=== PATIENT | male | born 1985 | race Caucasian/White ===

== ENCOUNTER 2021-01-09 13:50 | Emergency (ER) | payer OTHER, SELFPAY ==
[2021-01-09 13:51] VITALS: BP 141/79; PULSE 80; RESP 18; TEMP 36.9; O2SAT 100; BMI 25.1
--- NOTE | 2021-01-09 15:04 | EKG12_ITS ---
Test Reason : CP Blood Pressure : / mmHG Vent. Rate : 071 BPM Atrial Rate : 071 BPM P-R Int : 174 ms QRS Dur : 084 ms QT Int : 368 ms P-R-T Axes : 058 082 059 degrees QTc Int : 399 ms Sinus rhythm with marked sinus arrhythmia Otherwise normal ECG Confirmed by ANGELIKA CEDILLO, SUSAN ([id number]), newspaper photo editor KAMI CRUZ ([id number]) on 01/11/2021 10:34:48 AM Referred By: TORO Confirmed By:SUSAN CARNEY MD
--- NOTE | 2021-01-09 15:04 | RAD_ITS ---
STUDY: X-RAY CHEST REASON FOR EXAM: Male, 35 years old. Chest pain TECHNIQUE: Single AP portable view of the chest. COMPARISON: None. FINDINGS: EKG electrodes are seen. The lungs are clear and expanded. There is no demonstrated pleural abnormality. Normal size heart. Normal mediastinum and ivan. Normal visualized pulmonary arteries. Normal visualized aortic arch and descending thoracic aorta. Normal visualized thoracic spine. Normal visualized ribs, clavicles, and shoulders. There is no demonstrated abnormality of the visualized soft tissue structures of the upper abdomen. RAD/Chest 1 View (Portable) IMPRESSION: Normal x-ray examination of the chest. Electronically Signed: Moose Ruiz MD at 15:30 EDT , Service support ,
[2021-01-09 15:21] LABS: Absolute Lymphocyte Count 2.37 X10^3/uL (0.83-4.51); Absolute Neutrophil Count 4.6 X10^3/uL (2.0-7.7); Basophil# 0.04 X10^3/uL; Basophil% 0.5 % (0-1); Eosinophil# 0.44 X10^3/uL; Eosinophils% 5.4 % (0-5); Hemoglobin 15.1 g/dL (13.0-16.5); Lymphocyte # 2.37 X10^3/ul (0.83-4.51); Mean Corp Hgb Conc 34.3 g/dL (32-36); Mean Corpuscular Hgb 32.5 pg (27.0-32.0); Mean Corpuscular Volume 94.6 fL (80-94); Mean Platelet Vol. 10.3 fl (6.2-12.0); Monocyte# 0.65 X10^3/uL; Monocyte% 7.9 % (0-10); NRBC Flagged by Analyzer 0 % (0-5); Neutrophil # 4.64 X10^3/uL (2.7-7.7); Neutrophil % 56.7 % (47-70); Platelet Count 214 K/mm3 (150-450); RBC Distribution Width CV 11.4 % (11.6-14.6); RBC Distribution Width SD 39.1 fl (35.1-43.9); Red Blood Count 4.65 M/mm3 (4.6-6.2); White Blood Count 8.2 K/mm3 (4.4-11.0)
[2021-01-09 15:36] LABS: Anion Gap 6 (5-15); BUN 11 mg/dL (7-18); BUN/Creat Ratio 12.2 RATIO (10-20); Calcium,Total 8.7 mg/dL (8.5-10.1); Chloride 104 mmol/L (98-107); EST Glomerular Filtration Rate 102 mL/min (>60); Est Glom Filt Rate - Afr Amer 123 mL/min (>60); Estimated Creatinine Clearance 122.01 ml/min; Glucose 101 mg/dL (74-106); Potassium 3.9 mmol/L (3.5-5.1); Sodium Level 138 mmol/L (136-145); Troponin-I HS 28.4 pg/mL (3.0-78.5)
--- NOTE | 2021-01-09 15:51 | ED.VIS.CHEST ---
HPI History of Present Illness Chief Complaint: Chest Pain Informant: patient Narrative Narrative: Over the last 2 days or so patient has had continuous mild nonpleuritic chest tightness and occasional episodes of sharp nonpleuritic left-sided chest pain with radiation sometimes into his left upper arm and lightheadedness, and palpitations of feels like his heart is racing. He has a history of anxiety and knows this, and knows that these episodes of it making him feel anxious, the episodes last a minute or 2 sometimes 5, and he is unsure because of this whether the racing heartbeat is starting these episodes or is a result of them or his anxiety. He is a non-smoker, does not use illicit substances, and has no other medical problems. No history of blood clots. No recent travel, hospitalization, immobilization, or surgery. CVD Risk Factors: Positive for Smoking (E-cigarettes only); Negative for Hypertension, Diabetes, Hypercholesterolemia and Family History 1' </=55 PE Risk Factors: Negative for Recent Travel/Surgery, Recent Immobilization, Prior DVT or PE, Cancer and OCP + Smoking + >/=35 PFSH PFSH Medical History Anxiety Home Medications hydroxyzine HCl 10 mg PO DAILY 01/09/21 [History Last Taken Unknown] mirtazapine 15 mg PO QHS 01/09/21 [History Last Taken Unknown] omeprazole 20 mg PO DAILY #14 capsule 01/09/21 [Rx Last Taken Unknown] Allergy/AdvReac Type Severity Reaction Status Date / Time Penicillins Allergy Chest Verified 01/09/21 13:53 tightness Social History Smoking Status: Current every day smoker tobacco type: e-cigarettes ROS ROS ED Constitutional Constitutional ED: Denies chills or fever(s) Eyes Eyes: Denies change in vision or diplopia ENT ENT ED: Denies rhinorrhea or sore throat Cardiovascular Cardiovascular: Denies chest pain or palpitations Respiratory/Chest Respiratory/Chest: Denies cough or dyspnea Gastrointestinal Gastrointestinal: Denies abdominal pain, diarrhea, nausea or vomiting Genitourinary Genitourinary ED: Denies dysuria or hematuria Musculoskeletal Musculoskeletal: Denies back pain or neck pain Integumentary Denies abscess or rash Neurologic Neurologic: Denies headache(s), paresthesias or weakness Psychiatric Psychiatric: Denies anxiety or suicidal thoughts EXAM Physical Exam Const Vital Signs: 01/09/21 13:51 01/09/21 16:11 Temperature 98.4 F Temperature Source Temporal Pulse Rate 80 63 Respiratory Rate 18 14 Blood Pressure 141/79 H 109/72 Blood Pressure Mean 99 84 Pulse Ox 100 100 Oxygen Delivery Method Room Air Room Air Positive well nourished and well developed General Appearance ED: well developed and NAD HEENT Reports moist mucous membranes normocephalic and atraumatic Eyes PERRL and EOMs intact bilaterally Neck full ROM and supple Resp normal respiratory effort and clear to auscultation bilaterally Cardio regular rate, regular rhythm and no murmurs GI non-tender and non-distended Auscultation: normoactive bowel sounds Palpation: soft Back/Spine no CVA tenderness General Back: other FROM Extremity normal to inspection General Extremety ED: Negative for edema, pulses abnormal or tenderness General Extremity: Negative for edema or pulses abnormal Neuro oriented x3, CN's II-XII intact bilaterally and no sensory deficits noted Sensorium / Orientation: awake and alert Motor Exam: strength 5/5 throughout Skin no rashes or lesions noted and no wounds Heart Score History: Slightly/Non-Suspicious ECG: Normal Age: </= 45 years Risk Factors: 1 or 2 Risk Factors Troponin: </= Normal Limit Score: 1 MDM MDM MDM Narrative Medical decision making narrative: Patient had no further episodes of sharp left-sided chest pain, arm pain, or palpitations while in the emergency department on the monitor, nor did he have any abnormal events on the monitor. His work-up is negative. His troponin high-sensitivity is 28 which is well within normal limits of the 99th percentile which topped out at 78, I discussed this finding with Dr. Acosta with cardiology who agreed that this measurement was enough to rule out emergent cardiac etiology at this time without needing a second. I gave the patient a GI cocktail, he states that his chest actually improved significantly compared with prior in addition to the numbness in his throat. Certainly esophageal etiologies I think are more likely than cardiac ones at this time given his age and health. I think is reasonable to have him follow-up closely, he actually has an appointment with his doctor tomorrow, will place him on a 2-week course of a PPI in the meantime. He is comfortable with this plan. We discussed reasons to return. Lab Data Attestation: I reviewed the patient's lab results. Labs: Laboratory Results - last 24 hr 01/09/21 01/09/21 14:25 14:25 WBC 8.2 RBC 4.65 Hgb 15.1 Hct 44.0 MCV 94.6 H MCH 32.5 H MCHC 34.3 RDW Std Deviation 39.1 RDW Coeff of Alexandre 11.4 L Plt Count 214 MPV 10.3 Immature Gran % (Auto) 0.500 Neut % (Auto) 56.7 Lymph % (Auto) 29.0 [place] % (Auto) 7.9 Eos % (Auto) 5.4 H Baso % (Auto) 0.5 Absolute Neuts (auto) 4.6 Absolute Lymphs (auto) 2.37 Nucleated RBC % 0 Sodium 138 Potassium 3.9 Chloride 104 Carbon Dioxide 28.0 Anion Gap 6 BUN 11 Creatinine 0.90 Estim Creat Clear Calc 122.01 Est GFR (MDRD) Af Amer 123 Est GFR (MDRD) Non-Af 102 BUN/Creatinine Ratio 12.2 Glucose 101 Calcium 8.7 Troponin I High Sens 28.4 Radiography Chest X-Ray - ED: 1 View, Read by ED Physician and No Acute Disease Diagnostic Testing: Radiology Impression Chest X-Ray 01/09/21 15:04 IMPRESSION: Normal x-ray examination of the chest. Electronically Signed: Moose Ruiz MD at 15:30 EDT , Service support , EKG Initial EKG: Attestation: I personally reviewed and interpreted this EKG as follows: Interpretation: No Acute Injury Pattern and Sinus Arrythmia Comments: Otherwise normal EKG Discharge Plan Triage Chief Complaint: Chest Pain ED Provider: Bunny Tamayo Dx/Rx/DC Orders Clinical Impression: Chest pain, unspecified Instructions: ED Chest Pain, Uncertain Cause, ED Palpitations Prescriptions: New omeprazole [omeprazole] 20 MG capsule 20 mg PO DAILY Qty: 14 RF: 0 No Action mirtazapine 15 mg tablet 15 mg PO QHS RF: 0 hydroxyzine HCl 10 mg tablet 10 mg PO DAILY RF: 0 Primary Care Provider: Ivan Gruber Referrals: Ivan Gruber MD [Primary Care Provider] - 3-5 Days if not improving Disposition Disposition: Home, Self Care
[2021-01-09] MEDS: Mag Hydrox/Al Hydrox/Simeth 30 ML UDC PO (16:10)
[2021-01-09 16:11] VITALS: BP 109/72; PULSE 63; RESP 14; O2SAT 100
[2021-01-09 16:49] VITALS: BP 107/80; PULSE 60; RESP 14; O2SAT 100
== END 2021-01-09 16:53 | disposition home or self-care (01) ==
PROVIDERS: Emergency Provider Emergency Medicine; PCP Family Medicine
DX: R07.89 Other chest pain (principal); R00.2 Palpitations; F41.9 Anxiety disorder, unspecified; F17.290 Nicotine dependence, other tobacco product, uncomplicated; Z79.899 Other long term (current) drug therapy
CPT/HCPCS: 71045; 80048; 84484; 85025; 93005; 99284; A4216

== ENCOUNTER 2021-08-04 16:01 | Emergency (ER) | payer OTHER, SELFPAY ==
[2021-08-04 16:02] VITALS: BP 157/94; PULSE 67; RESP 18; TEMP 37.1; O2SAT 100; BMI 25.1
--- NOTE | 2021-08-04 16:26 | EKG12_ITS ---
Test Reason : CP Blood Pressure : / mmHG Vent. Rate : 068 BPM Atrial Rate : 075 BPM P-R Int : 000 ms QRS Dur : 076 ms QT Int : 388 ms P-R-T Axes : 000 079 057 degrees QTc Int : 412 ms Normal sinus rhythm Abnormal ECG Confirmed by PAOLO CLARKE MD ([id number]), newspaper editor KAMI CRUZ ([id number]) on 08/07/2021 10:35:03 AM Referred By: PC Confirmed By:PAOLO CLARKE MD
--- NOTE | 2021-08-04 16:28 | EDS_ITS ---
HPI History of Present Illness Chief Complaint: Chest Pain Narrative Narrative: 36-year-old male with history of hyperlipidemia, anxiety presents to the emerge department with 1 week of generalized left-sided chest pain that has radiated to the left shoulder. Patient states that he noticed a lump to the left side of his chest, that went away after 3 days, patient states she continued to have chest pain to the left side that radiates to his left shoulder, left neck and is rating down his left arm. Patient denies any shortness of breath. Patient states to feel generalized heaviness, and is here for evaluation. Patient denies any recent trips, flying,. Fevers chills nausea vomiting. Patient denies any cough or infectious symptoms. [facility] Medical History (Updated 08/04/21 @ 19:15 by BOOM Miner) Anxiety Hypercholesterolemia Home Medications hydroxyzine HCl 10 mg PO DAILY 01/09/21 [History Last Taken Unknown] omeprazole 20 mg PO DAILY #14 capsule 01/09/21 [Rx Last Taken Unknown] naproxen [Naprosyn] 500 mg PO BID PRN #20 tab 08/04/21 [Rx Last Taken Unknown] Allergy/AdvReac Type Severity Reaction Status Date / Time egg Allergy NEEDS Verified 08/04/21 16:04 FOLLOW-UP Penicillins Allergy Chest Verified 08/04/21 16:04 tightness Social History Smoking Status: Current every day smoker tobacco type: e-cigarettes ROS ROS ED ROS Narrative Constitutional: Negative for fever, chills, weight loss or gain, weakness Eyes: Negative for vision loss, vision change, double vision ENT: Negative for any hearing changes, ringing in the ears, dizziness, discharge, pain Nose: Negative for any congestion, runny nose, sinus pain, allergies Throat: Negative for any sore throat hoarseness, voice changes, Cardiovascular: Negative for any palpitations, racing heartbeat. Positive chest pain, chest pressure Respiratory: Negative for any coughs, sputum production, coughing, hemoptysis, shortness of breath, shortness of breath on exertion, Gastrointestinal: Negative for any abdominal pain, nausea, vomiting, diarrhea, constipation, blood in stool, blood in vomit : Negative for any urinary frequency, incontinence, dysuria, retention, blood in urine Muscle skeletal: Negative for any muscle joint pain, stiffness, myalgias, arthralgias, neck pain, back pain. Positive for left shoulder pain, rating down left arm Neurological: Negative for any headache, head injury, dizziness, syncope. Positive for numbness tingling down left arm Skin: Negative for any rashes, lumps, itching, abrasions, lacerations Psychiatric: Negative for any depression, anxiety, stress, suicidal ideation, homicidal ideation Hematologic: Negative for any easy bruising, excessive bruising, easy bleeding Allergies: Negative for any eczema, hives, rash EXAM Physical Exam Const Vital Signs: 08/04/21 16:02 08/04/21 16:16 08/04/21 16:29 Temperature 98.7 F Temperature Source Temporal Pulse Rate 67 Respiratory Rate 18 Respiratory Effort Short of Breath Blood Pressure 157/94 H Blood Pressure Mean 115 Pulse Ox 100 98 Oxygen Delivery Method Room Air Room Air Positive well nourished and well developed General Appearance ED: well developed HEENT normocephalic and atraumatic Eyes PERRL and EOMs intact bilaterally Neck no lymphadenopathy and supple Chest Wall inspection of chest normal and palpation of chest normal Resp normal respiratory effort Effort and Inspection: respiratory distress Cardio regular rate, regular rhythm, S1 normal heart sound and S2 normal heart sound GI normal to inspection, nondistended, normoactive bowel sounds, soft to palpation, non-tender, non-distended and no masses Back/Spine no CVA tenderness Extremity normal to inspection Neuro oriented x3 Sensorium / Orientation: awake, alert and oriented to person Psych mental status grossly normal Skin no rashes or lesions noted MDM MDM MDM Narrative Medical decision making narrative: Patient appears well, patient appears nontoxic, vital signs are stable, patient presents the emerge department left- sided chest pain, left shoulder pain rates down her left arm. Patient did receive a full cardiac work-up, patient's EKG was unremarkable, chest x-ray was unremarked for any acute cardiopulmonary process. Patient's laboratory studies showed initial troponin of 20, repeat was 21, there is no indication of any ACS, [place], pneumonia. Patient did have relief of symptoms with IV fluids, IV Toradol and will be discharged with naproxen. Patient instructed to return with worsening symptoms. Patient to follow-up with his PCP. Patient stable for discharge and happy with the plan of care. Lab Data Attestation: I reviewed the patient's lab results. Labs: Laboratory Results - last 24 hr 08/04/21 08/04/21 08/04/21 16:10 16:10 18:30 WBC 7.5 RBC 4.62 Hgb 15.3 Hct 42.9 MCV 92.9 MCH 33.1 H MCHC 35.7 RDW Std Deviation 39.2 RDW Coeff of Alexandre 11.5 L Plt Count 201 MPV 11.0 Immature Gran % (Auto) 0.300 Neut % (Auto) 62.4 Lymph % (Auto) 27.8 [place] % (Auto) 6.5 Eos % (Auto) 2.3 Baso % (Auto) 0.7 Absolute Neuts (auto) 4.7 Absolute Lymphs (auto) 2.08 Nucleated RBC % 0 Sodium 137 Potassium 3.7 Chloride 104 Carbon Dioxide 29.0 Anion Gap 4 L BUN 10 Creatinine 0.94 Estim Creat Clear Calc 115.71 Est GFR (MDRD) Af Amer 117 Est GFR (MDRD) Non-Af 97 BUN/Creatinine Ratio 10.7 Glucose 105 Calcium 8.9 Troponin I High Sens 20 21 Radiography Diagnostic Testing: Clinical Impression(s) from Imaging Studies Chest X-Ray 08/04/21 16:49 IMPRESSION: There are no acute findings. Electronically Signed: Mariano Bennett MD at 17:01 EST Reading Location ID and State: [facility] / [place] , Service support , EKG NSR: Attestation: I personally reviewed and interpreted this EKG as follows: Interpretation: Sinus Rhythm Comments: Normal sinus rhythm, rate of 60 bpm, no acute ST elevation, no acute infarct noted Discharge Plan Triage Chief Complaint: Chest Pain ED Provider: Akil Padilla Dx/Rx/DC Orders Clinical Impression: Chest pain, unspecified Instructions: ED Chest Pain [facility] Prescriptions: New naproxen [Naprosyn] 500 mg tablet 500 mg PO BID PRN (Reason: pain) Qty: 20 RF: 0 No Action hydroxyzine HCl 10 mg tablet 10 mg PO DAILY RF: 0 omeprazole [omeprazole] 20 MG capsule 20 mg PO DAILY Qty: 14 RF: 0 Primary Care Provider: Ivan Gruber Referrals: Ivan Gruber MD [Primary Care Provider] - Activity Restrictions/Additional Instructions: Please use naproxen as needed, please perform gentle stretching. Please ice and elevate. Disposition Disposition: Home, Self Care
[2021-08-04 16:29] VITALS: O2SAT 98
[2021-08-04] MEDS: Ondansetron 4 MG/2 ML Vial IV (16:34)
[2021-08-04] MEDS: 0.9% Normal Saline 1,000 ML 1000 ML IV (16:34)
[2021-08-04 16:49] LABS: Absolute Lymphocyte Count 2.08 X10^3/uL (0.83-4.51); Absolute Neutrophil Count 4.7 X10^3/uL (2.0-7.7); Basophil# 0.05 X10^3/uL; Basophil% 0.7 % (0-1); Eosinophil# 0.17 X10^3/uL; Eosinophils% 2.3 % (0-5); Hematocrit 42.9 % (40-54); Hemoglobin 15.3 g/dL (13.0-16.5); Lymphocyte # 2.08 X10^3/ul (0.83-4.51); Lymphocyte % 27.8 % (19-41); Mean Corp Hgb Conc 35.7 g/dL (32-36); Mean Corpuscular Hgb 33.1 pg (27.0-32.0); Mean Corpuscular Volume 92.9 fL (80-94); Monocyte# 0.49 X10^3/uL; Monocyte% 6.5 % (0-10); NRBC Flagged by Analyzer 0 % (0-5); Neutrophil # 4.68 X10^3/uL (2.7-7.7); Neutrophil % 62.4 % (47-70); Platelet Count 201 K/mm3 (150-450); RBC Distribution Width CV 11.5 % (11.6-14.6); RBC Distribution Width SD 39.2 fl (35.1-43.9); Red Blood Count 4.62 M/mm3 (4.6-6.2); White Blood Count 7.5 K/mm3 (4.4-11.0)
--- NOTE | 2021-08-04 16:49 | RAD_ITS ---
STUDY: X-RAY CHEST REASON FOR EXAM: Male, 36 years old. CHEST PAIN chest pain TECHNIQUE: XR Chest 1 View COMPARISON: 8.9.21 FINDINGS: There is no demonstrated pleural abnormality. Normal size heart. Normal mediastinum and ivan. Normal visualized pulmonary arteries. Normal visualized aortic arch and descending thoracic aorta. Normal visualized thoracic spine. Normal visualized ribs, clavicles, and shoulders. There is no demonstrated abnormality of the visualized soft tissue structures of the upper abdomen. RAD/Chest 1 View (Portable) IMPRESSION: There are no acute findings. Electronically Signed: Mariano Bennett MD at 17:01 EST ,
[2021-08-04 17:43] LABS: Anion Gap 4 (5-15); BUN 10 mg/dL (7-18); BUN/Creat Ratio 10.7 RATIO (10-20); Calcium,Total 8.9 mg/dL (8.5-10.1); Chloride 104 mmol/L (98-107); Creatinine, Serum 0.94 mg/dL (0.70-1.30); EST Glomerular Filtration Rate 97 mL/min (>60); Est Glom Filt Rate - Afr Amer 117 mL/min (>60); Estimated Creatinine Clearance 115.71 ml/min; Glucose 105 mg/dL (74-106); Potassium 3.7 mmol/L (3.5-5.1); Sodium Level 137 mmol/L (136-145); Troponin-I HS 20 pg/mL (3.0-78.0)
[2021-08-04 18:52] LABS: Troponin-I HS 21 pg/mL (3.0-78.0)
== END 2021-08-04 19:43 | disposition home or self-care (01) ==
PROVIDERS: Emergency Provider Nurse Practitioner; PCP Family Medicine; Visit Provider Nurse Practitioner
DX: R07.9 Chest pain, unspecified (principal); E78.5 Hyperlipidemia, unspecified; F41.9 Anxiety disorder, unspecified; F17.290 Nicotine dependence, other tobacco product, uncomplicated; Z79.1 Long term (current) use of non-steroidal anti-inflammatories (NSAID); Z79.899 Other long term (current) drug therapy
CPT/HCPCS: 71045; 80048; 84484; 85025; 93005; 96361; 96374; 99284; J7030; A4216; J2405

== ENCOUNTER 2021-11-16 17:26 | Emergency (ER) | payer OTHER, SELFPAY ==
[2021-11-16 17:27] VITALS: BP 133/89; PULSE 107; RESP 16; TEMP 36.8; O2SAT 100; BMI 23.6
[2021-11-16 17:29] VITALS: BP 133/89; PULSE 107; RESP 16; TEMP 36.8; O2SAT 100
--- NOTE | 2021-11-16 17:43 | EX.ED.DYSGE1 ---
HPI History of Present Illness Chief Complaint: General Illness Detail of Chief Complaint: Tingling. Anxiety. Informant: patient Onset/Context/Timing Onset: Days Context: Gradual Onset Timing: Intermittent Current Severity: Mild Maximum Severity: Mild Narrative Narrative: 36-year-old male history of anxiety. Recently diagnosed with superficial thrombophlebitis was placed on Naprosyn and daily aspirin. States has had intermittent numbness in his left leg right shoulder left shoulder in other areas. Said he is under more stress and his anxiety has been worse. He denies any headache. He denies any trouble with his speech. No trouble walking. No trouble moving his arms or legs. No visual changes. No facial numbness or weakness. Prior similar symptoms: No Recent Illness/Hospitalization: No PFSH PFSH Medical History Anxiety Hypercholesterolemia Persistent testicular pain Home Medications hydroxyzine HCl 10 mg tablet 10 mg PO DAILY 01/09/21 [History Last Taken Unknown] omeprazole 20 mg capsule,delayed release 20 mg PO DAILY #14 CAPSULES 01/09/21 [Rx Last Taken Unknown] naproxen 500 mg tablet (Naprosyn) 500 mg PO BID PRN pain #20 tabs 08/04/21 [Rx Last Taken Unknown] Allergy/AdvReac Type Severity Reaction Status Date / Time egg Allergy NEEDS Verified 08/04/21 16:04 FOLLOW-UP Penicillins Allergy Chest Verified 08/04/21 16:04 tightness Social History Smoking Status: Current every day smoker tobacco type: e-cigarettes ROS ROS ED ROS Narrative No recent illness. Review of Systems ROS Unobtainable: Denies due to encephalopathy Constitutional Constitutional ED: Denies chills Eyes Eyes: Denies blurry vision ENT ENT ED: Denies ear pain Cardiovascular Cardiovascular: Denies chest pain Respiratory/Chest Respiratory/Chest: Denies cough or dyspnea Gastrointestinal Gastrointestinal: Denies abdominal pain, constipation, diarrhea, melena or nausea Musculoskeletal Musculoskeletal: Denies arthralgias Integumentary Denies abscess Neurologic Neurologic: Denies headache(s) Psychiatric Psychiatric: Denies anxiety Endocrine Endocrinology: Denies cold intolerance Allergic/Immunologic Allergic/Immunologic ED: Denies mouth swelling or tongue swelling EXAM Physical Exam Narrative Exam Narrative: There is [age]-year-old male no acute distress vital signs stable afebrile. HEENT exam unremarkable. No facial droop. Normal speech. Lungs are clear equal symmetrical bilaterally. Heart regular rate and rhythm no murmur. Rate about 100. Abdomen soft nontender. Moving all 4 extremities. Neurovascular intact. 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 Dorsi plantarflexion intact. Neurologic exam normal. NIH is 0. Fingertip to nose [id number] within normal limits. Normal exam. Const Vital Signs: 11/16/21 17:27 11/16/21 17:29 Temperature 98.3 F 98.3 F Temperature Source Temporal Temporal Pulse Rate 107 H 107 H Respiratory Rate 16 16 Blood Pressure 133/89 H 133/89 H Blood Pressure Mean 103 103 Pulse Ox 100 100 Oxygen Delivery Method Room Air Room Air Positive well nourished and well developed; Negative for obese, cachectic, contractures or unkempt General Appearance ED: well developed; Negative for unkempt, cachectic, contractures or pallor Nutritional Appearance: Negative for cachectic or obese HEENT Reports moist mucous membranes Negative for trauma or tenderness Eyes PERRL and EOMs intact bilaterally General Eye ED: Negative for pale conjunctiva or scleral icterus Neck no lymphadenopathy, supple and no JVD General: Negative for tenderness Chest Wall inspection of chest normal and palpation of chest normal Resp normal respiratory effort and clear to auscultation bilaterally Effort and Inspection: Negative for retractions Auscultation: Negative for rales, rhonchi or wheezes Cardio regular rate, regular rhythm, S1 normal heart sound and S2 normal heart sound Rate: Negative for bradycardia or tachycardic GI normal to inspection, nondistended, normoactive bowel sounds, non-tender, non-distended and no masses; Negative for hepatosplenomegaly Inspection: Negative for abdominal distention Auscultation: normoactive bowel sounds Palpation: soft; Negative for tender, guarding, splenomegaly or mass Back/Spine no CVA tenderness General Back: Negative for CVA tenderness Cervical Spine: Negative for cervical spine tenderness Thoracic Spine / Upper Back: Negative for thoracic spinal tenderness Lumbar Spine / Lower Back: Negative for lumbar spinal tenderness Extremity normal to inspection General Extremety ED: Negative for edema or tenderness General Extremity: Negative for edema Neuro oriented x3, CN's II-XII intact bilaterally and no sensory deficits noted Sensorium / Orientation: alert; Negative for orientation impaired, lethargic or stuporous Motor Exam: strength 5/5 throughout; Negative for general weakness or strength abnormal Psych mental status grossly normal Appearance: Negative for unkempt Mood & Affect: anxious Skin no rashes or lesions noted and no wounds General Skin Exam: Negative for jaundice or pallor Rashes: No rashes noted Trauma: Negative for abrasion Wounds: Negative for wounds noted MDM MDM MDM Narrative Medical decision making narrative: Healthy 36-year-old male with tingling. Exam and neuro exam normal. Ankle secondary to anxiety. He does not need any imaging or lab work. He will be given a dose of p.o. Ativan. Discharge Plan Triage Chief Complaint: General Illness ED Provider: Cornelio Cota Dx/Rx/DC Orders Clinical Impression: Anxiety Instructions: ED Anxiety Reaction Prescriptions: No Action hydroxyzine HCl 10 mg tablet 10 mg PO DAILY Label Comments: TAKE 2 TABLETS BEFORE MEALS NEEDED FOR ANXIETY omeprazole [omeprazole] 20 MG capsule 20 mg PO DAILY Qty: 14 0RF naproxen [Naprosyn] 500 mg tablet 500 mg PO BID PRN (Reason: pain) Qty: 20 0RF Primary Care Provider: Ivan Gruber Referrals: Ivan Gruber MD [Primary Care Provider] - 1 Week if not improving Activity Restrictions/Additional Instructions: You have a normal exam. This should progressively improve. Continue normal anxiety medications as prescribed. Follow-up with your doctor as needed. Disposition Disposition: Home, Self Care
[2021-11-16] MEDS: LORazepam 1 MG Tablet PO (17:46)
== END 2021-11-16 17:56 | disposition home or self-care (01) ==
PROVIDERS: Emergency Provider Emergency Medicine; PCP Family Medicine; Visit Provider Emergency Medicine
DX: F41.9 Anxiety disorder, unspecified (principal); E78.00 Pure hypercholesterolemia, unspecified; F17.290 Nicotine dependence, other tobacco product, uncomplicated; Z79.899 Other long term (current) drug therapy
CPT/HCPCS: 99283

== ENCOUNTER 2023-03-14 13:32 | Emergency (ER) | payer BC, SELFPAY ==
[2023-03-14 13:33] VITALS: BP 143/93; PULSE 86; RESP 18; TEMP 36.1; O2SAT 99; BMI 22.8
[2023-03-14 13:52] VITALS: BP 121/81; PULSE 62; RESP 12; O2SAT 97
--- NOTE | 2023-03-14 14:41 | EX.ED.DYSGE1 ---
HPI History of Present Illness Chief Complaint: Dizziness [facility] Medical History Anxiety Hypercholesterolemia Persistent testicular pain Home Medications hydroxyzine HCl 10 mg tablet 10 mg PO DAILY 01/09/21 [History Last Taken Unknown] omeprazole 20 mg capsule,delayed release 20 mg PO DAILY #14 CAPSULES 01/09/21 [Rx Last Taken Unknown] lamotrigine 25 mg tablet 50 mg PO DAILY 03/14/23 [History Last Taken Unknown] Allergy/AdvReac Type Severity Reaction Status Date / Time egg Allergy NEEDS Verified 03/14/23 13:36 FOLLOW-UP Penicillins Allergy Chest Verified 03/14/23 13:36 tightness Social History Smoking Status: Current every day smoker tobacco type: e-cigarettes EXAM Physical Exam Const Vital Signs: 03/14/23 13:33 03/14/23 13:52 03/14/23 13:54 Temperature 97 F L Temperature Source Temporal Pulse Rate 86 62 Respiratory Rate 18 12 Respiratory Pattern Normal Blood Pressure 143/93 H 121/81 H Blood Pressure Mean 109 94 Pulse Ox 99 97 Oxygen Delivery Method Room Air Room Air MDM MDM MDM Narrative Medical decision making narrative: HISTORY OF PRESENT ILLNESS: 37-year-old male here with palpitations and dizziness since changing his medicine. Notes medicine changes Saturday and since that time he has had constant palpitations and dizziness. He further states he recently increased his lamotrigine dose from 25 mg to 50 mg and since has had palpitations and feeling lightheaded or dizzy. Denies any focal weakness or numbness. Denies any syncope. Denies any recent head trauma. REVIEW OF SYSTEMS: Pertinent positives: Palpitations/dizziness Pertinent negatives: Headache, nausea vomiting, chest pain, shortness of breath, lower extremity edema, syncope PHYSICAL EXAM: Nursing triage notes reviewed, Vital signs reviewed Constitutional: please see mdm HENT: MMM Eyes: Pupils equal round and reactive to light, Extraocular muscles intact Neck: No stridor, no JVD, full neck ROM Lungs: Clear to auscultation, No wheezing or rales. No increased work of breathing, no conversational dyspnea, no accessory muscle use, no nasal flaring. No respiratory distress noted Heart: Regular rate and rhythm, No murmurs, No rubs and No gallops, 2+ distal pulses (radial, femoral, posterior tibial) in all extremities Abdomen: Soft, there is no tenderness, rigidity, rebound or guarding, no obvious peritoneal signs, no palpable pulsatile abdominal masses, no auscultated abdominal bruit : No CVAT Extremities: No edema Neuro: Alert and oriented x3, neuro exam at baseline, cranial nerves II through XII are intact. No pain with extraocular muscle movement. There is negative test of skew. 5 of 5 strength in upper and lower extremities in flexion extension. Intact sensation to light touch in upper and lower extremity dermatomes. No truncal or extremity ataxia. No dysdiadochokinesia. Normal gait. 2+ reflexes in upper and lower extremities. No meningeal signs. Negative Babinski. NIH of 0. Skin: No rash or lesions noted MEDICAL DECISION MAKING: Chief Complaint: Palpitations/dizziness External records reviewed: No recent cardiac catheterizations, stress test or echocardiograms noted in the chart Factors affecting care: Anxiety, hyperlipidemia Social determinants of health: History of mental health disorder History obtained from others: none Consults: none [facility] Narrative: Patient was hemodynamically stable, afebrile, nontoxic-appearing. Exam without focal cardiopulmonary normalities. No focal neurologic deficits. I suspect the patient's presentation secondary to side effect from Lamictal. There is no signs of posterior circulation stroke, no signs of arrhythmia or ACS. Patient no symptoms hematology to suggest a life-limiting etiology. I suggested he decrease lamotrigine follow with his primary doctor for further outpatient evaluation. I gave strict return precautions and follow-up instructions. EKG with normal sinus rhythm, normal axis, normal intervals, no ST or T wave changes to suggest ischemia. No evidence of WPW, Brugada, ARVD. The patient and/or family, caregivers express understanding. The patient and/or family, caregivers agrees with the plan. Shared decision making: I will have a discussion with the patient and or visitors regarding risk/benefits of further testing or admission. They will be made aware of of the risk/benefits inherent in this decision they will be given the opportunity to voice understanding. Total critical care time today provided was at least 0 minutes. This excludes separately billable procedures. Critical care time (if documented) is secondary to the patient having high probability of clinically significant/life threatening deterioration in the patient's condition which required my urgent intervention. Impression: 1. Medication side effect 2. Dizziness 3. History of bipolar disorder Dispo: Discharge Discharge Plan Triage Chief Complaint: Dizziness ED Provider: Sourav Waller Dx/Rx/DC Orders Prescriptions: No Action hydroxyzine HCl 10 mg tablet 10 mg PO DAILY Patient Comments: TAKE 2 TABLETS BEFORE MEALS NEEDED FOR ANXIETY omeprazole [omeprazole] 20 MG capsule 20 mg PO DAILY Qty: 14 0RF lamotrigine 25 mg tablet 50 mg PO DAILY Patient Comments: take 1 tablet by mouth once daily for 1 week then INCREASE to 2 tablets by mouth once daily Primary Care Provider: Ivan Gruber Referrals: Ivan Gruber MD [Primary Care Provider] -
--- NOTE | 2023-03-14 15:16 | EKG12_ITS ---
Test Reason : DIZZINESS Blood Pressure : / mmHG Vent. Rate : 063 BPM Atrial Rate : 063 BPM P-R Int : 194 ms QRS Dur : 078 ms QT Int : 374 ms P-R-T Axes : 050 081 060 degrees QTc Int : 382 ms Normal sinus rhythm with sinus arrhythmia Possible Left atrial enlargement Borderline ECG Confirmed by TRICIA CEDILLO, PAOLO ([id number]), newspaper or periodical editor REINIER FERNANDO ([id number]) on 03/19/2023 7:55:10 AM Referred By: Confirmed By:PAOLO CLARKE MD
== END 2023-03-14 16:01 | disposition home or self-care (01) ==
LOC: ED 15:40
PROVIDERS: Emergency Provider Emergency Medicine; PCP Family Medicine; Visit Provider Emergency Medicine
DX: R42 Dizziness and giddiness (principal); F31.9 Bipolar disorder, unspecified; R00.2 Palpitations; T42.6X5A Adverse effect of other antiepileptic and sedative-hypnotic drugs, initial encounter; E78.00 Pure hypercholesterolemia, unspecified; F41.9 Anxiety disorder, unspecified; F17.290 Nicotine dependence, other tobacco product, uncomplicated; Z79.899 Other long term (current) drug therapy
CPT/HCPCS: 93005; 99283